=== PATIENT | female | born 1995 | race African-American/Black ===

== ENCOUNTER 2017-03-22 09:05 | Emergency (ER) | payer OTHER ==
[~2017-03-22] VITALS: Ht 172.7 cm; Wt 99.8 kg
[~2017-03-22 09:05] MED LIST: HYDR-971 PO; NAPR500T PO
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
[2017-03-22] MEDS ORDERED: HYDROcodone/APAP 5/325MG 1 TAB TABLET PO ONE (09:30)
--- NOTE | 2017-03-22 09:49 | RAD ---
Right ankle, 3 views, 03/22/2017: History: Ankle pain and swelling after injury No fracture or dislocation is identified. Right foot, 3 views, 03/22/2017: No fracture or dislocation is identified. IMPRESSION: No acute abnormality is detected.
[2017-03-22] MEDS ORDERED: HYDR-971 PO (10:12)
[2017-03-22 10:30] VITALS: BP 133/73
== END 2017-03-22 10:35 | disposition home or self-care (01) ==
LOC: ER 09:38
DX: S90.01XA Contusion of right ankle, initial encounter (principal); V09.9XXA Pedestrian injured in unspecified transport accident, initial encounter; Y92.488 Other paved roadways as the place of occurrence of the external cause; Y93.89 Activity, other specified; Y99.8 Other external cause status
CPT/HCPCS: 73610; 73630; 99284-25

== ENCOUNTER 2017-04-29 11:26 | Emergency (ER) | payer OTHER ==
[~2017-04-29] VITALS: Ht 172.7 cm; Wt 99.8 kg
[2017-04-29 11:46] VITALS: BP 119/66
[2017-04-29] MEDS ORDERED: AMOX500C PO (13:22)
--- NOTE | 2017-04-29 13:22 | PHYS DOC ---
Past Medical History Past Medical History: No Pertinent History Past Surgical History: No Surgical History Alcohol Use: None Drug Use: None Adult General Chief Complaint Chief Complaint: DENTAL PROBLEM HPI HPI Patient is a 22 year old female presents emergency department stating that she has an abscess along her gumline. She states that she's had this for the last 3- 4 days. She states that she has increased pain and discomfort. She states that she took one Advil for the pain with minimal relief. Patient denies fever, chills or any nausea or vomiting. Review of Systems Review of Systems Constitutional: Denies fever or chills [] Eyes: Denies change in visual acuity, redness, or eye pain [] HENT: Denies nasal congestion or sore throat. Dental pain Respiratory: Denies cough or shortness of breath [] Cardiovascular: No additional information not addressed in HPI [] GI: Denies abdominal pain, nausea, vomiting, bloody stools or diarrhea [] : Denies dysuria or hematuria [] Musculoskeletal: Denies back pain or joint pain [] Integument: Denies rash or skin lesions [] Neurologic: Denies headache, focal weakness or sensory changes [] Endocrine: Denies polyuria or polydipsia [] Allergies Allergies Allergies Coded Allergies Type Severity Reaction Last Updated Verified No Known Drug Allergies 02/14/14 No Physical Exam Physical Exam Constitutional: Well developed, well nourished, no acute distress, non-toxic appearance. [] HENT: Normocephalic, atraumatic, bilateral external ears normal, oropharynx moist, no oral exudates, nose normal. Bilateral tympanic membranes appear to be normal. Patient with a dental abscess noted in front of the #25 tooth. No drainage or discharge noted it does appear that she has a slight little hole there. Eyes: PERRLA, EOMI, conjunctiva normal, no discharge. [] Neck: Normal range of motion, no tenderness, supple, no stridor. [] Cardiovascular:Heart rate regular rhythm, no murmur [] Lungs & Thorax: Bilateral breath sounds clear to auscultation [] Skin: Warm, dry, no erythema, no rash. [] Back: No tenderness Extremities: No tenderness, no cyanosis, no clubbing, ROM intact, no edema. [] Neurologic: Alert and oriented X 3, normal motor function, normal sensory function, no focal deficits noted. [] Psychologic: Affect normal, judgement normal, mood normal. [] Current Patient Data Vital Signs Vital Signs Date Time Temp Pulse Resp B/P (MAP) Pulse Ox O2 Delivery O2 Flow Rate FiO2 04/29/17 11:46 97.8 88 20 98 Room Air 97.8 EKG EKG [] Radiology/Procedures Radiology/Procedures [] Course & Med Decision Making Course & Med Decision Making Pertinent Labs and Imaging studies reviewed. (See chart for details) Patient was encouraged to use ibuprofen for pain and discomfort. She was also recommended to use warm salt water mouth rinses 4-5 times a day. Patient will be provided with amoxicillin for the next 10 days. Recommended following up to primary care physician in the next week. Signs symptoms to return back to emergency department as been provided. Patient agrees with discharge instructions, treatment regimens and follow-up recommendations. [] Dragon Disclaimer Dragon Disclaimer This electronic medical record was generated, in whole or in part, using a voice recognition dictation system. Departure Departure Impression: Primary Impression: Dental abscess Disposition: 01 HOME, SELF-CARE Condition: STABLE Referrals: NO PCP (PCP) Patient Instructions: Dental Abscess Additional Instructions: Ibuprofen for pain and discomfort. You may take 800 mg every 8 hours with food. Antibiotics as prescribed. Warm salt water mouth rinses 5 times a day. Follow-up with your dentist in approximately one week. Return back to emergency department sign symptoms of become worse. Scripts Amoxicillin (AMOXICILLIN) 500 Mg Capsule 1 CAP PO QID, #40 CAP Prov: JULIETTE CAZARES APRN 04/29/17 JULIETTE CAZARES APRN Apr 29, 2017 13:22
== END 2017-04-29 13:31 | disposition home or self-care (01) ==
LOC: ER 11:35
DX: K04.7 Periapical abscess without sinus (principal)
CPT/HCPCS: 99283

== ENCOUNTER 2017-06-14 13:09 | Emergency (ER) | payer OTHER ==
[~2017-06-14 13:09] MED LIST changes: +AMOX500C PO
[2017-06-14 13:50] LABS: BILIRUBIN,URINE NEGATIVE (NEG); GLUCOSE,URINE NEGATIVE (NEG); NITRITE,URINE NEGATIVE (NEG); PH,URINE 7.5; PROTEIN,URINE NEGATIVE (NEG-TRACE)
--- NOTE | 2017-06-14 13:55 | PHYS DOC ---
Past Medical History Past Medical History: Asthma Past Surgical History: No Surgical History Alcohol Use: None Drug Use: None Adult General Chief Complaint Chief Complaint: ABDOMINAL PAIN HPI HPI Patient is a 22 year old female presents to the emergency department with a history of abdominal pain with diarrhea for the last 2 days. Patient states she had 3 diarrhea stools which has been watery with some stool noted. Denies vomiting, patient states she has taken dorene seltzer with out relief. Review of Systems Review of Systems Constitutional: Denies fever or chills [] Eyes: Denies change in visual acuity, redness, or eye pain [] HENT: Denies nasal congestion or sore throat [] Respiratory: Denies cough or shortness of breath [] Cardiovascular: No additional information not addressed in HPI [] GI: abdominal pain, diarrhea denies nausea, vomiting, bloody stools or diarrhea [] : Denies dysuria or hematuria [] Musculoskeletal: Denies back pain or joint pain [] Integument: Denies rash or skin lesions [] Neurologic: Denies headache, focal weakness or sensory changes [] Endocrine: Denies polyuria or polydipsia [] Current Medications Current Medications Current Medications Medications (Trade) Dose Ordered Sig/[facility] Start Time Stop Time Status Last Admin Dose Admin Ondansetron HCl (Zofran Odt) 4 mg 1X ONCE 06/14/17 14:00 06/14/17 14:01 DC 06/14/17 14:20 4 MG Allergies Allergies Allergies Coded Allergies Type Severity Reaction Last Updated Verified No Known Drug Allergies 02/14/14 No Physical Exam Physical Exam Constitutional: Well developed, well nourished, no acute distress, non-toxic appearance. [] HENT: Normocephalic, atraumatic, bilateral external ears normal, oropharynx moist, no oral exudates, nose normal. [] Eyes: PERRLA, EOMI, conjunctiva normal, no discharge. [] Neck: Normal range of motion, no tenderness, supple, no stridor. [] Cardiovascular:Heart rate regular rhythm, no murmur [] Lungs & Thorax: Bilateral breath sounds clear to auscultation [] Abdomen: Bowel sounds hypoactive, soft, no tenderness, no masses, no pulsatile masses. [] Skin: Warm, dry, no erythema, no rash. [] Back: No tenderness Extremities: No tenderness, no cyanosis, no clubbing, ROM intact, no edema. [] Neurologic: Alert and oriented X 3, normal motor function, normal sensory function, no focal deficits noted. [] Psychologic: Affect normal, judgement normal, mood normal. [] Current Patient Data Vital Signs Vital Signs Date Time Temp Pulse Resp B/P (MAP) Pulse Ox O2 Delivery O2 Flow Rate FiO2 06/14/17 13:20 99.0 86 18 128/73 (91) 100 Room Air 99.0 Lab Values Laboratory Tests Test 06/14/17 12:31 06/14/17 13:18 POC Urine HCG, Qualitative Hcg negative (Negative) Urine Collection Type Unknown Urine Color Yellow Urine Clarity Clear Urine pH 7.5 Urine Specific [place] >=1.030 Urine Protein Negative mg/dL (NEG-TRACE) Urine Glucose (UA) Negative mg/dL (NEG) Urine Ketones (Stick) Negative mg/dL (NEG) Urine Blood Negative (NEG) Urine Nitrite Negative (NEG) Urine Bilirubin Negative (NEG) Urine Urobilinogen Dipstick 1.0 mg/dL (0.2 mg/dL) Urine Leukocyte Esterase Small (NEG) Urine RBC 0 /HPF (0-2) Urine WBC 1-4 /HPF (0-4) Urine Squamous Epithelial Cells Mod /LPF Urine Bacteria 0 /HPF (0-FEW) Urine Mucus Marked /LPF Urine Yeast Present /HPF EKG EKG [] Radiology/Procedures Radiology/Procedures [] Course & Med Decision Making Course & Med Decision Making Pertinent Labs and Imaging studies reviewed. (See chart for details) Patient with no diarrhea stools noted here in the emergency department. Patient was provided with Zofran here in the ER. Patient was also noted to have a urinary tract infection as a urinalysis showed small amount leukocyte Estrace. With a lot of bacteria. Patient will be placed on Macrobid she'll be discharged home in stable condition she'll be encouraged to drink plenty of fluids. Also spoke with her in regards to the diarrhea she may take Imodium [id number] as prescribed by mortgage protection sales. Patient will be discharged home in stable condition signs and symptoms to return back to emergency department as been provided. All questions has been answered at the patient's bedside. [] Dragon Disclaimer Dragon Disclaimer This electronic medical record was generated, in whole or in part, using a voice recognition dictation system. Departure Departure Impression: Primary Impression: Urinary tract infection Additional Impression: Diarrhea Disposition: 01 HOME, SELF-CARE Condition: STABLE Referrals: NO PCP (PCP) Patient Instructions: Diarrhea, [id number], Diet for Diarrhea, Adult, Urinary Tract Infection, [id number] Additional Instructions: Activity as tolerated. Tylenol for pain and discomfort. Drink plenty of fluids to help keep herself hydrated. Antibiotics as prescribed. Use Imodium [id number] instructed by mortgage protection sales to help her diarrhea. Drink plenty of fluids such as water and cranberry juice. Avoid cranberry juice cocktail carbonate beverages, caffeine, alcohol, and citrus fruits disease are considered irritants to the bladder. Follow-up to primary care physician next 3-5 days. Return to the emergency department sign symptoms of become worse. Scripts Nitrofurantoin Monohyd/M-Cryst (MACROBID 100 MG CAPSULE) 100 Mg Capsule 1 CAP PO BID, #14 CAP Prov: JULIETTE CAZARES APRN 06/14/17 Problem Qualifiers JULIETTE CAZARES APRN Jun 14, 2017 13:55
[2017-06-14 13:56] LABS: BACTERIA,URINE 0 /HPF (0-FEW); RBC,URINE 0 /HPF (0-2); SQUAMOUS EPITHELIAL CELL,UR MOD /LPF
[2017-06-14 13:57] LABS: YEAST,URINE PRESENT /HPF
[2017-06-14] MEDS ORDERED: ONDANSETRON ODT 4 MG TAB.RAPDIS. PO ONE (14:00)
[2017-06-14] MEDS ORDERED: NITR100C62 PO (14:24)
[2017-06-14 14:40] VITALS: BP 128/60
== END 2017-06-14 14:54 | disposition home or self-care (01) ==
LOC: ER 13:09
DX: N39.0 Urinary tract infection, site not specified (principal); R19.7 Diarrhea, unspecified; J45.909 Unspecified asthma, uncomplicated
CPT/HCPCS: 81001; 81025; 87086; 99284; Q0162

== ENCOUNTER 2017-11-11 08:57 | Emergency (ER) | payer OTHER ==
[2017-11-11] MEDS: IBUPROFEN 800 MG TABLET. PO (10:04)
[2017-11-11 10:15] LABS: URINE HCG POC HCG NEGATIVE (Negative)
== END 2017-11-11 11:02 | disposition home or self-care (01) ==
LOC: ER 08:57
DX: S79.911A Unspecified injury of right hip, initial encounter (principal); J45.909 Unspecified asthma, uncomplicated; W00.0XXA Fall on same level due to ice and snow, initial encounter; Y93.89 Activity, other specified; Y99.8 Other external cause status; Y92.89 Other specified places as the place of occurrence of the external cause
CPT/HCPCS: 73502; 81025; 99284